=== PATIENT | female | born 1945 | race Caucasian/White ===

== ENCOUNTER 2018-02-21 14:37 | Outpatient (CLI) | payer MEDICARE, OTHER ==
--- NOTE | 2018-02-21 15:42 | RAD ---
TWO VIEWS RIGHT KNEE: Indication: Right knee pain. Comparison: None. FINDINGS: There is mild osteoarthrosis of the right knee. No joint capsular distention is apparent. No acute fr acture is evident. IMPRESSION: No acute osseous abnormality. Mild osteoarthrosis of the right knee. POS: [facility]
== END 2018-02-21 14:38 | disposition home or self-care (01) ==
LOC: SCSRAD 14:37
PROVIDERS: ATTEND Internal Medicine
DX: M25.561 Pain in right knee (principal); I10 Essential (primary) hypertension; M17.11 Unilateral primary osteoarthritis, right knee

== ENCOUNTER 2018-09-21 13:30 | Outpatient (CLI) | payer MEDICARE, OTHER ==
--- NOTE | 2018-09-21 15:02 | MRI ---
MRI BRAIN WITH AND WITHOUT GADOLINIUM CONTRAST: Date: 09/21/18 HISTORY: Headache. FINDINGS: No comparison. There is no evidence of acute intracranial hemorrhage or infarct. Cortical volume is within normal li mits. There is no mass effect, shift of midline structures, or abnormal areas of contrast enhancement . 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 IMPRESSION: No acute intracranial abnormalities are demonstrated. POS: [facility]
== END 2018-09-21 13:31 | disposition home or self-care (01) ==
LOC: SCSMRI 13:30
PROVIDERS: ATTEND Internal Medicine
DX: R51 Headache (principal)
CPT/HCPCS: 70553; 82565

== ENCOUNTER 2019-09-10 07:27 | Outpatient (CLI) | payer MEDICARE, OTHER ==
--- NOTE | 2019-09-10 08:33 | ULT ---
ABDOMINAL ULTRASOUND HISTORY: Elevated bilirubin. FINDINGS: Liver: There are 2 anechoic cystic structures seen within the left hepatic lobe which demonstrate calvin racteristics most compatible with a cyst largest measuring 3.5 cm. Gallbladder: There are mobile echogenic foci seen within the gallbladder lumen demonstrating posterio r shadowing compatible with gallbladder calculi. Gallbladder wall is at the upper limits of normal in thickness measuring 0.3 cm. No pericholecystic fluid is identified. Common duct: Common duct is normal in caliber measuring 0.5 cm in diameter. Pancreas: The limited visualized pancreas demonstrates a normal sonographic appearance. IVC: Limited visualized IVC has a normal sonographic appearance. Aorta: Mild atherosclerotic plaque is seen in the abdominal aorta. Spleen: Within normal limits. Kidneys: Kidneys demonstrate a normal sonographic appearance bilaterally with the right kidney measur ing 10.4 cm in length, and the left kidney measures 13.2 cm in length. IMPRESSION: 1. Cholelithiasis. The common duct is normal in caliber. 2. Left hepatic lobe cysts. 3. Asymmetry in size of the kidneys with the left kidney larger in size. However, the kidneys otherwi se demonstrate a normal sonographic appearance bilaterally.
== END 2019-09-10 07:28 | disposition home or self-care (01) ==
LOC: SCSULT 07:27
PROVIDERS: ATTEND Internal Medicine Hematology & Oncology
DX: E80.7 Disorder of bilirubin metabolism, unspecified (principal); K80.20 Calculus of gallbladder without cholecystitis without obstruction; K76.89 Other specified diseases of liver; N28.89 Other specified disorders of kidney and ureter
CPT/HCPCS: 93975

== ENCOUNTER 2020-02-03 07:15 | Outpatient (CLI) | payer MEDICARE, OTHER ==
[2020-02-04 13:48] LABS: SARS-CoV-2 MS2 Positive; SARS-CoV-2 N Gene Negative; SARS-CoV-2 S Gene Negative; SARS-CoV-2 orf1ab Negative
== END 2020-02-03 07:16 | disposition home or self-care (01) ==
LOC: LABBT 07:15
PROVIDERS: ATTEND Specialist
DX: Z01.812 Encounter for preprocedural laboratory examination (principal); Z11.59 Encounter for screening for other viral diseases; K80.20 Calculus of gallbladder without cholecystitis without obstruction
CPT/HCPCS: 87635; U0003

== ENCOUNTER 2020-02-06 08:03 | Day surgery (SDC) | payer MEDICARE, OTHER ==
[2020-01-31 10:10] VITALS: BMI 23.5
[2020-02-06] MEDS ORDERED: Acetaminophen 500 MG TAB ONE (08:25)
[2020-02-06] MEDS ORDERED: Ketorolac Tromethamine 30 MG/ML VIAL ONE ×2 (08:25→10:45)
[2020-02-06] MEDS ORDERED: Scopolamine 1.5 mg/72 hour Patch ONE (08:37)
[2020-02-06] MEDS ORDERED: Glycopyrrolate 0.2 MG/ML 5 ML SYRINGE ONE ×2 (10:45→14:09)
[2020-02-06] MEDS ORDERED: Ondansetron PF 4 MG/2 ML Vial ONE (10:45)
[2020-02-06] MEDS ORDERED: PROPOFOL 200 MG/20 ML VIAL ONE (10:45)
[2020-02-06] MEDS ORDERED: Rocuronium Bromide 10 MG/ML (10ML VIAL) ONE (10:45)
[2020-02-06] MEDS ORDERED: Lidocaine 1% PF 5 ML VIAL ONE (10:45)
[2020-02-06] MEDS ORDERED: Dexamethasone 20 MG/5 ML VIAL ONE (10:45)
[2020-02-06] MEDS ORDERED: Lidocaine 1% w/Epinephrine 1:100K 20 ML VIAL ONE (11:09)
[2020-02-06] MEDS ORDERED: Bupivacaine 0.25% HCL 30 ML VIAL ONE (11:09)
[2020-02-06] MEDS ORDERED: Fentanyl 100 MCG/2 ML VIAL ONE ×2 (11:19→13:21)
[2020-02-06] MEDS ORDERED: Iopamidol 50 ML FS ONE (12:04)
--- NOTE | 2020-02-06 14:17 | RAD ---
Exam: Intraoperative cholangiogram Exposure: 7.78 mCi. FINDINGS: 2 intraoperative. Images demonstrate cannulation of the cystic duct. Contrast opacifies a n ormal caliber central intrahepatic biliary system and extrahepatic biliary system. Contrast does pass from the common bile duct into the duodenum. IMPRESSION: Intraoperative fluoroscopy as above.
[2020-02-06] MEDS ORDERED: Ondansetron ODT 4 MG TAB ONE (15:19)
--- NOTE | 2020-02-07 12:01 | OP ---
DATE OF PROCEDURE: 02/06/2020 PREOPERATIVE DIAGNOSIS: Symptomatic cholelithiasis. 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 PROCEDURE PERFORMED: Laparoscopic cholecystectomy with intraoperative cholangiogram, left lobe liver wedge biopsy. ANESTHESIA: General endotracheal. INDICATIONS: The patient is a 74-year-old white female. She recently had an episode of elevated liver function test. She was found to have cholelithiasis. She presents this time for laparoscopic cholecystectomy. DESCRIPTION OF OPERATION: Informed consent was obtained. The patient was taken to the operating room, where general endotracheal anesthesia was obtained with the patient in supine position. Abdomen was prepped with ChloraPrep and draped in sterile fashion. Local anesthetic was infiltrated using a mixture of 1% lidocaine with epinephrine and 0.25% Marcaine. An 11 mm infraumbilical incision was created through which a Veress needle was passed into the peritoneal cavity and pneumoperitoneum was established using carbon dioxide up to pressure of 15 mmHg. An 11 mm trocar port site was passed through the same incision. Laparoscopic camera was passed through this port. Under direct vision, three additional 5 mm right upper quadrant ports were placed. Attention was turned to the gallbladder. This was grasped and retracted in cephalad direction. Infundibulum was grasped and retracted laterally inferiorly. Careful dissection was carried at the apex of the gallbladder. The cystic artery was identified and divided between clips, leaving two on the side to remain within the abdomen. The duct appeared to be larger than typical. I therefore placed a clip proximally and created a ductotomy. Cholangiocath was passed through this and a cholangiogram was obtained. This revealed normal emptying of the contrast into the duodenum. In order to get the contrast refluxed back into the liver, I had to compress the common bile duct. This did however show normal intrahepatic radicles. There was no definite filling defect noted. The cholangiocath was removed. Duct was doubly clipped and I also placed a PDS Endoloop to securely close the duct. The gallbladder was then dissected to the gallbladder fossa using electrocautery and removed through the umbilical incision. Attention was then turned to the left lobe of the liver. There was noted to be a cystic appearing mass protruding from the left lobe of the liver measuring about 2 cm in diameter. This was an exophytic mass. Although, I felt this was likely benign, I decided to resect this for pathology. A wedge resection was performed using the LigaSure device. The specimen was placed in a specimen retrieval sac and removed through the umbilical port site. The fascia was then closed at this site using 0 Vicryl in a GraNee needle. The excision site was inspected and found to be hemostatic. All ports and instruments were removed under direct vision. Pneumoperitoneum was carefully evacuated. A 0.25% Marcaine with epinephrine substrate each port site. Skin edges approximated with 4-0 Monocryl subcuticular suture. Dermabond was placed externally. There were no complications. The patient tolerated the procedure well, was taken to recovery room in stable condition. Job ID: [id number]
== END 2020-02-06 15:30 | disposition home or self-care (01) ==
LOC: SDC 08:03
PROVIDERS: ATTEND Specialist
PROC: 0FT44ZZ Resection of Gallbladder, Percutaneous Endoscopic Approach (ICD-10-PCS; principal; 2020-02-06)
PROC: BF101ZZ Fluoroscopy of Bile Ducts using Low Osmolar Contrast (ICD-10-PCS; 2020-02-06)
PROC: 0FB24ZZ Excision of Left Lobe Liver, Percutaneous Endoscopic Approach (ICD-10-PCS; 2020-02-06)
DX: K80.10 Calculus of gallbladder with chronic cholecystitis without obstruction (principal); K76.89 Other specified diseases of liver; M19.90 Unspecified osteoarthritis, unspecified site; E78.5 Hyperlipidemia, unspecified; I10 Essential (primary) hypertension; M81.0 Age-related osteoporosis without current pathological fracture; Z85.3 Personal history of malignant neoplasm of breast; Z79.82 Long term (current) use of aspirin; Z79.899 Other long term (current) drug therapy; Z88.5 Allergy status to narcotic agent
CPT/HCPCS: 47532; 88304; 88307; 88313; J0690; J1100; J1885; J2001; J2405; J2704; J3010; Q0162; Q9967; S0020

== ENCOUNTER 2020-09-14 13:03 | Outpatient (CLI) | payer MEDICARE, OTHER ==
--- NOTE | 2020-09-14 14:11 | BD ---
DEXA BONE DENSITY STUDY: HISTORY: Postmenopausal. FINDINGS: Lumbar Spine: BMD (g/cm2) L1 0.815 T-Score: -1.6 L2 0.843 T-Score: -1.7 L3 0.867 T-Score: -2.0 L4 0.921 T-Score: -1.3 L1-L4 0.866 T-Score: -1.6 Femoral Neck: 0.639 T-Score: -1.9 Total Femur: 0.819 T-Score: -1.0 Impression: Osteopenia of the left femoral neck and lumbar spine. POS: [facility]
== END 2020-09-14 13:04 | disposition home or self-care (01) ==
LOC: BICMAMMO 13:03
PROVIDERS: ATTEND Internal Medicine Hematology & Oncology
DX: Z13.820 Encounter for screening for osteoporosis (principal); N95.8 Other specified menopausal and perimenopausal disorders; M85.89 Other specified disorders of bone density and structure, multiple sites
CPT/HCPCS: 77080

== ENCOUNTER 2021-02-06 17:18 | Inpatient (IN) | payer OTHER, MEDICARE ==
[2021-02-06] MEDS ORDERED: Promethazine HCl 25 MG/ML VIAL ONE (17:29)
[2021-02-06] MEDS ORDERED: HYDROmorphone 0.5 MG/0.5 ML SYRINGE ONE ×2 (17:31→20:38)
[2021-02-06 17:55] LABS: #Eosinphils 0.1 thou/uL (0.0-0.7); #Lymphocytes 1.3 thou/uL (1.20-3.40); #Monocytes 0.3 thou/uL (0.11-0.59); #Neutrophils 3.2 thou/uL (1.40-6.50); %Basophils 0.5 % (0.0-1.0); %Lymphocytes 27.2 % (21.0-51.0); %Monocytes 6.2 % (0.0-10.0); %Neutrophils 65.1 % (42.0-75.0); Hemoglobin 12.2 g/dL (12.0-16.0); Mean Corpuscular Hemoglobin 31.1 pg (27.0-31.0); Mean Corpuscular Volume 86.5 fL (78.0-98.0); Mean Platelet Volume 7.5 fL (7.4-10.4); Platelet Count 144 thou/uL (130-400); RBC Distribution Width 11.9 % (11.5-14.5); Red Blood Cell (RBC) Count 3.91 mill/uL (4.20-5.40); White Blood Cell (WBC) Count 4.9 thou/uL (4.8-10.8)
[2021-02-06 18:15] LABS: ALT (SGPT) 16 U/L (8-55); AST (SGOT) 17 U/L (5-34); Albumin 4.4 g/dL (3.4-4.8); Alkaline Phosphatase 49 U/L (40-110); Anion Gap 18 mmol/L (10-20); BUN (Urea Nitrogen) 21 mg/dL (9.8-20.1); Bilirubin, Total 0.9 mg/dL (0.2-1.2); Calc. Creatinine Clearance 0 mL/min (70-130); Calcium 10.4 mg/dL (7.8-10.44); Carbon Dioxide 21 mmol/L (23-31); Chloride 99 mmol/L (98-107); Globulin 2.4 g/dL (2.4-3.5); Glucose 136 mg/dL (83-110); Potassium 3.1 mmol/L (3.5-5.1); Protein, Total 6.8 g/dL (5.8-8.1); Sodium 135 mmol/L (136-145)
[2021-02-06 22:48] VITALS: BMI 23.5
[2021-02-06] MEDS ORDERED: Ondansetron PF 4 MG/2 ML Vial IVP PRN (22:57)
[2021-02-06] MEDS ORDERED: Dextrose 50% Abboject 50 ML SYRINGE SLOW IVP PRN (22:57)
[2021-02-06] MEDS ORDERED: Ondansetron ODT 4 MG TAB PO PRN (22:57)
[2021-02-06] MEDS ORDERED: Cyclobenzaprine 10 MG TAB PO PRN (22:57)
[2021-02-06] MEDS ORDERED: traMADol HCl 50 MG TAB PO PRN ×2 (22:57)
[2021-02-06] MEDS ORDERED: Morphine 2 MG/ML VIAL SLOW IVP PRN (22:57)
[2021-02-06] MEDS ORDERED: Dextrose 5% in Water 1,000 ML IV PRN (22:57)
[2021-02-06] MEDS ORDERED: hydrALAZINE 20 MG/ML VIAL SLOW IVP PRN (22:57)
[2021-02-06] MEDS ORDERED: Melatonin 3 MG TAB PO SCH (23:15)
[2021-02-06] MEDS: Ibuprofen 200 MG TAB PO SCH (23:24)
[2021-02-06] MEDS: Acetaminophen 325 MG TAB PO SCH (23:25)
[2021-02-06] MEDS: Sodium Chloride 0.9% 1,000 ML IV SCH (23:29)
[2021-02-06] MEDS ORDERED: Famotidine 20 MG TAB PO SCH (23:30)
[2021-02-07] MEDS: Acetaminophen 325 MG TAB PO SCH ×4 (05:40→17:55)
[2021-02-07 07:22] LABS: Bacteria/HPF None Seen HPF (None Seen); Bilirubin Negative (Negative); Blood, Urine Negative (Negative); Clarity Clear (Clear); Glucose, Urine (Dipstick) Normal (Negative); Ketone, Urine Negative (Negative); Leukocyte Negative Leu/uL (Negative); Nitrite Negative (Negative); Protein, Urine (Dipstick) Negative (Neg-Trace); RBC/HPF 0-3 HPF (0-3); Squamous Epithelial None Seen HPF (0-3); Urobilinogen Normal mg/dL (Less than 2); WBC/HPF 0-3 HPF (0-3); pH, Urine 5.5 (5.0-9.0)
[2021-02-07] MEDS: Atenolol 50 MG TAB PO SCH (08:53)
[2021-02-07] MEDS: Famotidine 20 MG TAB PO SCH (08:53)
[2021-02-07 08:58] LABS: #Lymphocytes 0.9 thou/uL (1.20-3.40); #Monocytes 0.4 thou/uL (0.11-0.59); #Neutrophils 3.9 thou/uL (1.40-6.50); %Basophils 0.2 % (0.0-1.0); %Eosinophils 0.3 % (0.0-10.0); %Lymphocytes 17.4 % (21.0-51.0); %Monocytes 8.1 % (0.0-10.0); Hemoglobin 10.3 g/dL (12.0-16.0); Mean Corpuscular HGB CONC 35.8 g/dL (32.0-36.0); Mean Corpuscular Volume 86.6 fL (78.0-98.0); Mean Platelet Volume 7.7 fL (7.4-10.4); Platelet Count 131 thou/uL (130-400); RBC Distribution Width 11.8 % (11.5-14.5); Red Blood Cell (RBC) Count 3.31 mill/uL (4.20-5.40); White Blood Cell (WBC) Count 5.3 thou/uL (4.8-10.8)
[2021-02-07] MEDS ORDERED: CEFAZOLIN 2 GM in Premix Bag 1 BAG IVPB SCH (09:00)
[2021-02-07 09:19] LABS: Anion Gap 10 mmol/L (10-20); BUN (Urea Nitrogen) 17 mg/dL (9.8-20.1); Calc. Creatinine Clearance 57 mL/min (70-130); Calcium 9.3 mg/dL (7.8-10.44); Carbon Dioxide 23 mmol/L (23-31); Chloride 102 mmol/L (98-107); Glucose 99 mg/dL (83-110); Magnesium 1.8 mg/dL (1.6-2.6); Phosphorus 3.1 mg/dL (2.3-4.7); Potassium 3.3 mmol/L (3.5-5.1); Sodium 132 mmol/L (136-145)
[2021-02-07] MEDS ORDERED: Ondansetron PF 4 MG/2 ML Vial ONE (10:25)
[2021-02-07] MEDS ORDERED: PROPOFOL 200 MG/20 ML VIAL ONE (10:25)
[2021-02-07] MEDS ORDERED: Lidocaine 1% PF 5 ML VIAL ONE (10:25)
[2021-02-07] MEDS ORDERED: Glycopyrrolate 0.2 MG/ML 5 ML SYRINGE ONE (10:25)
[2021-02-07] MEDS ORDERED: ePHEDrine Sulfate 50 MG/10 ML VIAL ONE (10:25)
[2021-02-07] MEDS ORDERED: PHENYLEPHRINE-NS 100 MCG/ML 10 ML SYRINGE ONE (10:25)
[2021-02-07] MEDS ORDERED: Dexamethasone 20 MG/5 ML VIAL ONE (10:25)
[2021-02-07] MEDS ORDERED: Fentanyl 100 MCG/2 ML VIAL ONE (10:50)
[2021-02-07] MEDS ORDERED: Scopolamine 1.5 mg/72 hour Patch ONE (10:54)
[2021-02-07] MEDS: Sodium Chloride 0.9% 1,000 ML IV SCH (12:04)
[2021-02-07] MEDS: Hydrochlorothiazide 25 MG TAB PO SCH (13:18)
[2021-02-07] MEDS: Losartan 25 MG TAB PO SCH (13:18)
[2021-02-07] MEDS: Ibuprofen 200 MG TAB PO SCH ×2 (13:19→16:22)
[2021-02-07] MEDS: Atorvastatin Calcium 10 MG TAB PO SCH (20:38)
[2021-02-07] MEDS: Latanoprost 0.005% Ophth Soln 2.5 ml Bottle EA EYE SCH (20:38)
[2021-02-07] MEDS: Melatonin 3 MG TAB PO SCH (20:38)
[2021-02-08] MEDS: Acetaminophen 325 MG TAB PO SCH ×5 (00:05→23:07)
[2021-02-08] MEDS: Ibuprofen 200 MG TAB PO SCH ×4 (00:06→23:07)
[2021-02-08 05:46] LABS: #Lymphocytes 0.5 thou/uL (1.20-3.40); #Monocytes 0.5 thou/uL (0.11-0.59); %Eosinophils 0.1 % (0.0-10.0); %Monocytes 8.8 % (0.0-10.0); %Neutrophils 82.2 % (42.0-75.0); Hemoglobin 7.7 g/dL (12.0-16.0); Mean Corpuscular HGB CONC 36.4 g/dL (32.0-36.0); Mean Corpuscular Hemoglobin 31.7 pg (27.0-31.0); Mean Corpuscular Volume 87.1 fL (78.0-98.0); Mean Platelet Volume 7.1 fL (7.4-10.4); Platelet Count 100 thou/uL (130-400); RBC Distribution Width 11.8 % (11.5-14.5); Red Blood Cell (RBC) Count 2.42 mill/uL (4.20-5.40)
[2021-02-08 06:18] LABS: Anion Gap 13 mmol/L (10-20); BUN (Urea Nitrogen) 21 mg/dL (9.8-20.1); Calc. Creatinine Clearance 40 mL/min (70-130); Calcium 8.7 mg/dL (7.8-10.44); Carbon Dioxide 23 mmol/L (23-31); Chloride 100 mmol/L (98-107); Glucose 114 mg/dL (83-110); Magnesium 1.7 mg/dL (1.6-2.6); Phosphorus 2.3 mg/dL (2.3-4.7); Potassium 3.6 mmol/L (3.5-5.1); Sodium 132 mmol/L (136-145)
[2021-02-08] MEDS: Ascorbic Acid 500 mg Chewable Tablet PO SCH ×2 (09:17→20:30)
[2021-02-08] MEDS: Ferrous Sulfate 325 MG TAB PO SCH ×2 (09:18→20:31)
[2021-02-08] MEDS: Atenolol 50 MG TAB PO SCH (09:18)
[2021-02-08] MEDS: Hydrochlorothiazide 25 MG TAB PO SCH (09:19)
[2021-02-08] MEDS: Losartan 25 MG TAB PO SCH (09:19)
[2021-02-08] MEDS: Famotidine 20 MG TAB PO SCH (09:19)
[2021-02-08] MEDS ORDERED: Magnesium Sulfate 2 GM in Sodium Chloride 0.9% 100 ML IVPB SCH (14:00)
[2021-02-08] MEDS ORDERED: Potassium Phosphate 30 MMOL, Magnesium Sulfate 2 GM in Sodium Chloride 0.9% 250 ML 250 ML IVPB SCH (15:00)
[2021-02-08] MEDS: Latanoprost 0.005% Ophth Soln 2.5 ml Bottle EA EYE SCH (20:29)
[2021-02-08] MEDS: Melatonin 3 MG TAB PO SCH (20:31)
[2021-02-08] MEDS: Atorvastatin Calcium 10 MG TAB PO SCH (20:31)
[2021-02-09] MEDS: Acetaminophen 325 MG TAB PO SCH ×3 (05:17→17:36)
[2021-02-09 05:57] LABS: #Eosinphils 0.1 thou/uL (0.0-0.7); #Lymphocytes 0.9 thou/uL (1.20-3.40); #Monocytes 0.3 thou/uL (0.11-0.59); #Neutrophils 4.7 thou/uL (1.40-6.50); %Basophils 0.2 % (0.0-1.0); %Eosinophils 1.1 % (0.0-10.0); %Monocytes 4.2 % (0.0-10.0); %Neutrophils 79.6 % (42.0-75.0); Hemoglobin 7.9 g/dL (12.0-16.0); Mean Corpuscular HGB CONC 35.4 g/dL (32.0-36.0); Mean Corpuscular Hemoglobin 31.2 pg (27.0-31.0); Mean Corpuscular Volume 88.2 fL (78.0-98.0); Mean Platelet Volume 7.8 fL (7.4-10.4); Platelet Count 120 thou/uL (130-400); Red Blood Cell (RBC) Count 2.53 mill/uL (4.20-5.40); White Blood Cell (WBC) Count 5.9 thou/uL (4.8-10.8)
[2021-02-09 06:11] LABS: Anion Gap 14 mmol/L (10-20); BUN (Urea Nitrogen) 16 mg/dL (9.8-20.1); Calc. Creatinine Clearance 56 mL/min (70-130); Calcium 8.8 mg/dL (7.8-10.44); Carbon Dioxide 23 mmol/L (23-31); Chloride 102 mmol/L (98-107); Glucose 101 mg/dL (83-110); Magnesium 2.2 mg/dL (1.6-2.6); Phosphorus 2.4 mg/dL (2.3-4.7); Potassium 3.9 mmol/L (3.5-5.1); Sodium 135 mmol/L (136-145)
[2021-02-09] MEDS ORDERED: Potassium Phosphate 30 MMOL in Sodium Chloride 0.9% 250 ML 250 ML IVPB SCH (08:45)
[2021-02-09] MEDS: Ibuprofen 200 MG TAB PO SCH (09:06)
[2021-02-09] MEDS: Atenolol 50 MG TAB PO SCH (09:07)
[2021-02-09] MEDS: Ferrous Sulfate 325 MG TAB PO SCH ×2 (09:08→20:53)
[2021-02-09] MEDS: Losartan 25 MG TAB PO SCH (09:09)
[2021-02-09] MEDS: Famotidine 20 MG TAB PO SCH (09:10)
[2021-02-09] MEDS: Hydrochlorothiazide 25 MG TAB PO SCH (09:10)
[2021-02-09] MEDS: Ascorbic Acid 500 mg Chewable Tablet PO SCH ×2 (09:10→20:53)
[2021-02-09] MEDS: Enoxaparin Sodium 30 MG/0.3 ML SYRINGE SC SCH (09:17)
[2021-02-09] MEDS ORDERED: Ibuprofen 200 MG TAB PO PRN (09:55)
[2021-02-09] MEDS: Senokot 8.6 MG TAB PO SCH (20:53)
[2021-02-09] MEDS: Melatonin 3 MG TAB PO SCH (20:53)
[2021-02-09] MEDS: Latanoprost 0.005% Ophth Soln 2.5 ml Bottle EA EYE SCH (20:54)
[2021-02-09] MEDS: Atorvastatin Calcium 10 MG TAB PO SCH (20:54)
[2021-02-10] MEDS: Acetaminophen 325 MG TAB PO SCH ×3 (00:33→11:59)
[2021-02-10 06:28] LABS: #Eosinphils 0.1 thou/uL (0.0-0.7); #Monocytes 0.4 thou/uL (0.11-0.59); #Neutrophils 3.8 thou/uL (1.40-6.50); %Basophils 0.4 % (0.0-1.0); %Eosinophils 2.6 % (0.0-10.0); %Lymphocytes 19.3 % (21.0-51.0); %Monocytes 6.6 % (0.0-10.0); %Neutrophils 71.1 % (42.0-75.0); Hemoglobin 7.8 g/dL (12.0-16.0); Mean Corpuscular HGB CONC 36.8 g/dL (32.0-36.0); Mean Corpuscular Hemoglobin 32.1 pg (27.0-31.0); Mean Corpuscular Volume 87.3 fL (78.0-98.0); Mean Platelet Volume 7.5 fL (7.4-10.4); Platelet Count 140 thou/uL (130-400); Red Blood Cell (RBC) Count 2.42 mill/uL (4.20-5.40); White Blood Cell (WBC) Count 5.3 thou/uL (4.8-10.8)
[2021-02-10] MEDS: Senokot 8.6 MG TAB PO SCH (08:09)
[2021-02-10] MEDS: Hydrochlorothiazide 25 MG TAB PO SCH (08:09)
[2021-02-10] MEDS: Ascorbic Acid 500 mg Chewable Tablet PO SCH (08:09)
[2021-02-10] MEDS: Famotidine 20 MG TAB PO SCH (08:09)
[2021-02-10] MEDS: Ferrous Sulfate 325 MG TAB PO SCH (08:10)
[2021-02-10] MEDS: Losartan 25 MG TAB PO SCH (08:10)
[2021-02-10] MEDS: Atenolol 50 MG TAB PO SCH (08:10)
[2021-02-10] MEDS: Enoxaparin Sodium 30 MG/0.3 ML SYRINGE SC SCH (08:11)
[2021-02-10 08:13] VITALS: TEMP 98.2
[2021-02-10 12:35] VITALS: BP 110/51
[2021-02-11] MEDS ORDERED: Polyethylene Glycol 3350 17 GM Packet PO SCH (09:00)
== END 2021-02-10 14:26 | DRG 481 ==
LOC: ERS 17:18 → SURG B 18:56
PROVIDERS: ADMIT Specialist; ATTEND Specialist
PROC: 0QSC06Z Reposition Left Lower Femur with Intramedullary Internal Fixation Device, Open Approach (ICD-10-PCS; principal; 2021-02-07)
DX: S72.492A Other fracture of lower end of left femur, initial encounter for closed fracture (principal); M97.12XA Periprosthetic fracture around internal prosthetic left knee joint, initial encounter; W19.XXXA Unspecified fall, initial encounter; D64.9 Anemia, unspecified; I10 Essential (primary) hypertension; Z85.3 Personal history of malignant neoplasm of breast; Z90.13 Acquired absence of bilateral breasts and nipples; Y92.89 Other specified places as the place of occurrence of the external cause; Z88.5 Allergy status to narcotic agent
CPT/HCPCS: 36415; 71045; 72170; 76000; 80048; 80053; 81001; 83036; 83735; 84100; 85025; 93005; 94760; 96374; 96375; 96376; C1713; J0690; J1100; J1170; J1650; J2405; J2550; J2704; J3010; J3475; J7050

== ENCOUNTER 2021-10-05 10:06 | Outpatient (CLI) | payer MEDICARE, OTHER | END 2021-10-05 10:07 | disposition home or self-care (01) | LOC: BICMAMMO 10:06 | PROVIDERS: ATTEND Internal Medicine Rheumatology | DX: M81.0 Age-related osteoporosis without current pathological fracture (principal); M85.89 Other specified disorders of bone density and structure, multiple sites | CPT/HCPCS: 77080 ==

== ENCOUNTER 2022-10-06 13:22 | Outpatient (CLI) | payer MEDICARE, OTHER | END 2022-10-06 13:23 | disposition home or self-care (01) | LOC: BICMAMMO 13:22 | PROVIDERS: ATTEND Internal Medicine Hematology & Oncology | DX: C50.511 Malignant neoplasm of lower-outer quadrant of right female breast (principal); T38.6X5A Adverse effect of antigonadotrophins, antiestrogens, antiandrogens, not elsewhere classified, initial encounter; M81.0 Age-related osteoporosis without current pathological fracture; M85.852 Other specified disorders of bone density and structure, left thigh | CPT/HCPCS: 77080 ==